=== PATIENT | female | born 1945 | race Caucasian/White ===

== ENCOUNTER 2017-10-22 18:24 | Inpatient (IN) | payer MEDICARE, OTHER ==
[~2017-10-22 18:24] MED LIST: ISOVUE-370 76%-LOCM 1 ML ONE
[2017-10-22 19:07] VITALS: BMI 29.7
[2017-10-22 19:10] LABS: #Basophils 0.1 thou/uL (0.0-0.2); #Eosinphils 0.1 thou/uL (0.0-0.7); #Lymphocytes 2.3 thou/uL (1.20-3.40); #Monocytes 0.5 thou/uL (0.11-0.59); #Neutrophils 7.1 thou/uL (1.40-6.50); %Basophils 0.7 % (0.0-1.0); %Lymphocytes 22.8 % (21.0-51.0); %Monocytes 5.1 % (0.0-10.0); Hematocrit 44.9 % (36.0-47.0); Mean Platelet Volume 7.4 fL (7.4-10.4); Red Blood Cell (RBC) Count 4.95 mill/uL (4.20-5.40); White Blood Cell (WBC) Count 10.1 thou/uL (4.8-10.8)
[2017-10-22 19:18] LABS: Modified Allen's Test POSITIVE; Sodium 140 mmol/L (135-148); Vent NO
[2017-10-22 19:19] LABS: Mode NC
[2017-10-22 19:29] LABS: ALT (SGPT) 25 U/L (8-55); AST (SGOT) 29 U/L (5-34); Alkaline Phosphatase 103 U/L (40-150); Anion Gap 14 mmol/L (10-20); BUN (Urea Nitrogen) 15 mg/dL (9.8-20.1); Bilirubin, Total 0.4 mg/dL (0.2-1.2); Calc. Creatinine Clearance 75 mL/min (70-130); Calcium 9.8 mg/dL (7.8-10.44); Carbon Dioxide 26 mmol/L (23-31); Chloride 104 mmol/L (98-107); Estimated GFR-MDRD 68; Globulin 3.1 g/dL (2.4-3.5); Magnesium 2.3 mg/dL (1.6-2.6); Protein, Total 7.5 g/dL (6.0-8.3)
[2017-10-22 19:39] LABS: Troponin I 0.012 ng/mL (< 0.028)
--- NOTE | 2017-10-22 20:35 | RAD ---
CHEST ONE VIEW: History: Chest pain. Comparison: 2016 FINDINGS: Lungs are without focal airspace consolidation, pneumothorax or effusion. Likely a large sliding hiat al hernia. No pneumothorax. Old right clavicular injury with plate and screw fixation of the right humerus. IMPRESSION: 1. No acute intrathoracic abnormality. 2. Likely large sliding hiatal hernia. POS: [facility]
--- NOTE | 2017-10-22 20:50 | PDOC.EVN ---
Event Note - Event Note Event Note: [id number] H&P dictated 1. Acute respiratory alkalosis 2. Anxiety 3. Dyspnea 4. Depression plan: see orders
--- NOTE | 2017-10-22 21:26 | CT ---
CTA CHEST WITH 3D VOLUME RENDERING: Clinical history: Chest pain. FINDINGS: No evidence of a significant filling defect of the contrast opacified pulmonary system. There is a la rge hiatal hernia. Mild volume loss is seen within the lungs. No effusion or pneumothorax. No lobar c onsolidation or pulmonary mass. Scattered hypoattenuation foci of the liver are present. Some of whic h demonstrate attenuation compatible with cysts and others are too small to definitely characterize. There is an adrenal mass centered at the body of the right adrenal gland which is indeterminate on th e basis of this exam. Vascular calcification is present. There are multilevel compression deformities of the thoracic spine, age indeterminate. IMPRESSION: 1. No large pulmonary embolus. 2. Multilevel age indeterminate compression deformities of the thoracic spine. Correlate clinically. 3. Large hiatal hernia. 4. Indeterminate right adrenal mass. Dedicated follow up adrenal mass protocol CT is warranted. POS: [facility]
[2017-10-22] MEDS ORDERED: Aspirin 325 MG TAB PO SCH (21:30)
[2017-10-22] MEDS ORDERED: AcetaZOLAMIDE 250 MG TAB PO SCH (21:30)
[2017-10-22 23:19] LABS: Troponin I Less than 0.010 ng/mL (< 0.028)
--- NOTE | 2017-10-23 01:40 | HP ---
DATE OF ADMISSION: 10/22/2017 CHIEF COMPLAINT: Dyspnea. HISTORY OF PRESENT ILLNESS: Patient is a 72-year-old male with past medical history of anxiety, restrictive lung disease, depression, osteopenia came to the ER because of dyspnea. The patient is having dyspnea for the past 2 months , dyspnea persisted. He complains of some dry cough for the past 2 weeks. Denies any fever, denies any chills, denies any sputum production, denies any chest condition. Dyspnea got worse last few weeks ago. Patient also complains of intermittent chest pain. Chest pain is substernal tightness kind, mild in intensity lasts few seconds, denies any fever, denies any chills, denies any diarrhea, denies any blood in the stool. Denies any palpitations, denies any dizziness. Patient went to PCP office and PCP directly admitted to the floor. PAST MEDICAL HISTORY: As per HPI. PAST SURGICAL HISTORY: Cholecystectomy. SOCIAL HISTORY: Denies smoking, denies alcohol use and drugs. FAMILY HISTORY: Positive for heart problems. REVIEW OF SYSTEMS: Constitutional: Denies any fever, denies any chills. Eyes : denies any vision problems. Ears: Denies any hearing loss. Neck: Denies any neck pain. Cardiovascular: Positive for chest tightness. Respiratory: Denies any cough, denies any sputum production. Gastrointestinal: Denies any nausea, vomiting. Integumentary: Denies any rash. Genitourinary: Denies any dysuria. Musculoskeletal: Denies any joint deformities. All other review of systems are reviewed and are negative. PHYSICAL EXAMINATION: CONSTITUTIONAL/VITAL SIGNS: At the time of H&P performed, blood pressure is 117 /100, heart rate 84, temperature 98.3, pulse ox 100%. GENERAL: This patient appears slightly anxious. Awake, alert, and oriented x3. HEENT: Head, anterior nares patent. Nose normal. Ears normal. NECK: Supple. No JVD. CARDIOVASCULAR: S1, S2 present. Regular rate and rhythm. No murmurs, no rubs , no gallops. RESPIRATORY: No wheezing, no rhonchi. Breath sounds bilaterally. GASTROINTESTINAL: Abdomen is soft, nontender, no guarding, no organomegaly, no masses felt. CRANIAL NERVE SYSTEM: Awake, follows commands. Strength intact, sensory intact. PSYCHIATRIC: Mood appropriate at this time. INTEGUMENT: No rashes seen. PSYCHIATRIC: Mood is slightly anxious. Denies any suicidal ideation. INTEGUMENTARY: No obvious rashes seen. LABORATORY DATA: At the time of H&P performed, white count 10.1, hemoglobin 15 , platelet count is 266, D-dimer 0.34. ABG showed pH 7.62, pCO2 of 18, bicarbonate is 18.5. BMP showed sodium 140, potassium 4.1, chloride 104, CO2 is 26, BUN of 15, creatinine 0.82, glucose is 112. Lactic acid 2.3, troponin 0.012. EKG: Positive for Q-waves in lead 3 and AVF. ASSESSMENT AND PLAN: Patient is a 72-year-old female: 1. Dyspnea plus acute respiratory alkalosis. We will monitor respiratory status closely. Bicarb in BMP was 26, potassium bicarbonate 1. Blood gases slightly low. We will monitor bicarbonate level closely. We will go ahead and get Pulmonary to evaluate the patient and also caser shoe parts. We will check 2D echo. We will go ahead and do CT chest to rule out any PE. We might give a dose of Diamox also at this time because of the severe respiratory alkalosis. We will follow the patient closely. 2. Anxiety. PRN anxiolytics. Monitor respiratory status closely. 3. History of Restrictive lung disease Continue breathing treatments. 4. History of depression and osteopenia. Continue home medications. Case was discussed in detail with the patient. Patient is FULL CODE. MTDD
[2017-10-23 02:16] LABS: Troponin I Less than 0.010 ng/mL (< 0.028)
[2017-10-23 04:10] LABS: #Eosinphils 0.1 thou/uL (0.0-0.7); #Lymphocytes 2.1 thou/uL (1.20-3.40); #Monocytes 0.6 thou/uL (0.11-0.59); #Neutrophils 4.3 thou/uL (1.40-6.50); %Basophils 0.7 % (0.0-1.0); %Eosinophils 1.6 % (0.0-10.0); %Lymphocytes 29.7 % (21.0-51.0); %Monocytes 8.2 % (0.0-10.0); Hematocrit 39.4 % (36.0-47.0); Mean Platelet Volume 7.4 fL (7.4-10.4); Red Blood Cell (RBC) Count 4.26 mill/uL (4.20-5.40); White Blood Cell (WBC) Count 7.2 thou/uL (4.8-10.8)
[2017-10-23 04:29] LABS: Anion Gap 11 mmol/L (10-20); BUN (Urea Nitrogen) 16 mg/dL (9.8-20.1); Calc. Creatinine Clearance 80 mL/min (70-130); Calcium 8.5 mg/dL (7.8-10.44); Carbon Dioxide 24 mmol/L (23-31); Chloride 108 mmol/L (98-107); Estimated GFR-MDRD 73
[2017-10-23] MEDS: Aspirin 325 MG TAB PO SCH (08:56)
[2017-10-23] MEDS: Oxybutynin 5 MG TAB PO SCH (08:56)
[2017-10-23] MEDS: Pantoprazole 40 MG GRANULES PACKET PO SCH ×2 (08:58→20:52)
--- NOTE | 2017-10-23 09:01 | PDOC.PN ---
- Subjective Encounter Start Date: 10/23/17 Encounter Start Time: 08:58 Subjective: sob, cough - Objective MAR Reviewed: Yes Vital Signs & Weight: Vital Signs (12 hours) Temp Pulse Resp BP BP Pulse Ox 10/23/17 07:28 97.6 F 75 20 124/70 99 10/22/17 22:18 84 24 H 150/87 H 95 Weight Weight 173 lb 4 oz Result Diagrams: 10/23/17 03:49 10/23/17 03:49 Additional Labs: Accuchecks 10/22/17 19:26 POC Glucose 120 H Phys Exam - Physical Examination Constitutional: NAD Neck: no JVD exp wheezes, rhonchi Cardiovascular: RRR, no significant murmur Gastrointestinal: soft, non-tender Musculoskeletal: no edema Dx/Plan (1) Chronic lung disease Code(s): J98.4 - OTHER DISORDERS OF LUNG Status: Chronic (2) Acute dyspnea Code(s): R06.00 - DYSPNEA, UNSPECIFIED Status: Acute (3) Respiratory alkalosis Code(s): E87.3 - ALKALOSIS Status: Acute (4) Anxiety Code(s): F41.9 - ANXIETY DISORDER, UNSPECIFIED Status: Chronic - Plan start neb, zithromax , steroids * .
[2017-10-23] MEDS: Venlafaxine HCl XR 150 MG CAP PO SCH (09:04)
--- NOTE | 2017-10-23 10:54 | CON ---
DATE OF CONSULTATION: 10/23/2017 INDICATION FOR CONSULTATION: A 72-year-old female with dyspnea on exertion, abnormal arterial blood gases and some complaints of chest discomfort, she was advised to be admitted to the hospital for fur ther evaluation and treatment. I saw this lady approximately 2 years ago with similar type complaint s with a history of shortness of breath, which have been getting worse when she tries to walk, she lai d stopped, and at that time was found also had a diagnosis of hiatal hernia. She also was found to h ave some small GI AVMs. She has some history of depression and anxiety. She did undergo stress test ing at that time and there was no indication that patient had any ischemia. She did have some pulmon naveen function studies in the past, which she says that showed evidence of restrictive lung disease. S he was seen in the hospital perhaps at that time by Dr. Torres and was prescribed albuterol inhalers an d she said her symptoms did improve while she was on inhaler, but when she run out the medicine, she stopped taking it and she has not had any further nebulizer treatments in over a year. She presented to the hospital at this time, cardiac enzymes are unremarkable, EKG is also unremarkable. Chest x-r ay shows a large hiatal hernia. Her laboratory data is essentially unremarkable except for the abnor mal ABGs. At this time, she is comfortable. She does have some epigastric discomfort, which she tosin cribes that as being her pain. She says she has had the pain for several years as well as shortness of breath and dyspnea on exertion, which she says neither the shortness of breath has not changed. S he says sometimes she has tingling and numbness in the left arm and tingling in both hands, which may be due to a noncardiac issue, these are not occurred at the time of the chest discomfort that she is having and the discomfort she describes is in the lower retrosternal area over the epigastric area, most likely with her hiatal hernia. She denies any other significant chest discomfort and she has lai d no complaints of palpitations or syncopal episodes or any other cardiac problems and denies any cla udication type symptoms. PAST MEDICAL HISTORY: Significant for hiatal hernia, depression, OCD, small GI AV malformations and restrictive lung disease. She has had an EGD in the past. She has had a cholecystectomy. She has h ad esophageal stricture, which she underwent balloon dilatation. ALLERGIES: None. MEDICATIONS: At home include Seroquel, Protonix, Ditropan, venlafaxine, hydrochlorothiazide extended release tablets. Since she has been placed in the hospital, she is on aspirin, Ditropan, Protonix. She has also been placed on prednisone 40 mg a day, Effexor XR. She also was given a dose of azithr omycin and she has been placed back on her DuoNeb. She is also on Seroquel. REVIEW OF SYSTEMS: HEENT: She had no new HEENT complaints such as visual changes, hearing loss or t innitus. Pulmonary: She has no changes in her shortness of breath or dyspnea on exertion. She says she has always been short of breath. She is unable to walk very far and the shortness of breath may become worse when she exerts herself, but otherwise she says she has no significant problems when sh e is lying down. She has more problems with breathing when she is sitting. She has had no hemoptysi s. Gastrointestinal: She did complain of some GI discomfort and she also had some hematemesis, but not severe. She has had no other significant diarrhea. She has had some occasional nausea, but none recently. Genitourinary: She denies any dysuria, polyuria, or hematuria. Musculoskeletal: No giulia nt swelling or restrictions. She does have some mild arthritic type change problems, but otherwise u nremarkable except for the numbness in the hands and the left arm which may be due to carpal tunnel s yndrome. Neurological: No history of seizures or syncope. PHYSICAL EXAMINATION: GENERAL: Reveals a well-developed, well-nourished female who is in no acute distress. She is alert and oriented. VITAL SIGNS: Blood pressure is 124/70, heart rate is 75 and regular. She is afebrile, respiratory r ate is 20. HEENT: Reveals the head to be normocephalic and atraumatic. Carotid pulses are present. There were no bruits. There is no JVD. The thyroid is not enlarged. Oral mucosa was pink and moist. CHEST: Clear to auscultation. There were no rales, rhonchi or wheezing noted. CARDIOVASCULAR: Exam reveals a regular rate and rhythm with a normal S1, S2. There is no S3, S4. T here were no significant murmurs, heaves, thrills, bruits or rubs noted. ABDOMEN: Shows obesity. Positive bowel sounds are present. She does have some tenderness in the ep igastric area. I cannot palpate any masses. EXTREMITIES: Showed no clubbing, cyanosis or edema. Pedal pulses are present. NEUROLOGIC: The patient appears to be fully intact with normal strength and normal tone. SKIN: Warm and dry. IMPRESSION: 1. Shortness of breath and dyspnea on exertion, which may be due to restrictive lung disease. She h as been placed back on nebulizer treatment. She may need to follow up with Dr. Torres for pulmonary ev aluation. She has had pulmonary function studies in the past. 2. History of chest pain, which is somewhat atypical and appears to be more of gastrointestinal prob sandi than actually cardiac, but we will schedule her for stress testing to ensure she has no evidence of coronary artery disease or ischemia given she is 72 years old. She has negative enzymes and a nor mal EKG. 3. Hiatal hernia. She may need to be seen again by GI and for consultation to see whether or not th is has worsened. She also may need to be seen by the General Surgery for possible repair of the hiat al hernia if this continues to worsen as this may be some of the etiology of her shortness of breath and discomfort. 4. Tingling in her hands and arms, which may be due to carpal tunnel syndrome, this is also be evalu ated by Orthopedics. 5. Some history in the past of anxiety. The patient denies history of anxiety. This will be dealt with by the primary care service. She has been placed on medications for this. 6. Some history of diastolic dysfunction by echocardiogram in the past. She has been having a repea t echocardiogram performed today. We will reevaluate this issue. Otherwise, she remains relatively stable. Overall, the patient says she has had no significant change in her symptoms over the last ye ar, she was visiting her family members and her son noticed that she was short of breath and he insis brice that she follow up with her primary care physician. We will continue to follow the patient with you, but will await further recommendations based on the echocardiogram and stress testing.
[2017-10-23] MEDS: predniSONE 20 MG TAB PO SCH (10:58)
[2017-10-23] MEDS: Azithromycin 500 MG in Sodium Chloride 0.9% 250 ML 250 ML IVPB SCH (14:45)
[2017-10-23] MEDS ORDERED: Regadenoson 0.4 MG/5 ML SYRINGE ONE (15:52)
--- NOTE | 2017-10-23 18:03 | NM ---
MYOCARDIAL PERFUSION STUDY 10/23/17 HISTORY: Dyspnea. Family history of coronary artery disease. RADIOPHARMACEUTICAL: 33 millicuries technetium 99m Sestamibi, IV at stress and 9 millicuries technetium 99m Sestamibi, IV at rest. MEDICATION: 0.4 mg of Lexiscan, IV. COMPARISON: 08/19/15. FINDINGS: There is no reversible defect seen between the stress and resting acquisitions. The gated images show normal ventricular wall motion and wall thickening. Calculated left ventricular ejection fraction is 81%. Calculated left ventricular ejection on the prior study in 2014 was 84%. IMPRESSION: 1. Normal myocardial perfusion study without evidence of a reversible defect seen to suggest isc hemia. 2. Normal LVEF of 81%. POS: [facility]
[2017-10-23] MEDS: clonazePAM 0.5 MG TAB PO SCH (20:52)
[2017-10-23 22:28] LABS: Bilirubin Negative (Negative); Blood, Urine Negative (Negative); Glucose, Urine (Dipstick) 500 mg/dL (Negative); Ketone, Urine Negative (Negative); Nitrite Negative (Negative); Protein, Urine (Dipstick) Negative (Neg-Trace)
--- NOTE | 2017-10-24 01:30 | CON ---
DATE OF CONSULTATION: 10/23/2017 SERVICE: Pulmonary Medicine. REASON FOR CONSULTATION: Metabolic alkalosis. HISTORY OF PRESENT ILLNESS: The patient is a 72-year-old white female. She was in her usual state o f health until 4 or 5 years ago, at which point, she visited [place]. From that point on, she felt stepan t she had increasing respiratory difficulties. This slowly abated for a period of time, but when she went back to [place] second time, she felt that she had onset of symptoms once again. These have been plugging her basically on and off for the past several years. She had a thorough investigation abou t 3 years ago. At that time, she had an ABG that was done demonstrated a respiratory alkalosis. The re was also pulmonary function studies dated from the same time. This demonstrated mild restrictive lung disease. That being said, her expiratory time was inadequate to determine whether or not she lai d any really true obstructive morphology, but realistically, there is no scooping of the expiratory l imb of the flow volume loop that would be suggestive of an obstructive morphology. At that time, the diffusion capacity was perfectly normal. She returns to the hospital because of increasing respirat ory discomfort, and some chest discomfort. Initially, she was placed in the hospital under observati on, but she was escalated to the inpatient side because of 4 different issues. Either way, she curre ntly denies any productive cough, changes to her weight, nausea, vomiting, diarrhea, or abdominal dis comfort. While back, when she would use albuterol or other types of breathing treatments, seemed to improve her respiratory discomfort slightly. PAST MEDICAL HISTORY: 1. Major depressive disorder. 2. Anxiety disorder. 3. Mild restrictive lung disease. 4. Osteopenia. PAST SURGICAL HISTORY: Cholecystectomy. SOCIAL HISTORY: Negative for alcohol, tobacco or illicit drug use. She denies any exposure to chemi cals, dust, asbestos or tuberculosis. FAMILY HISTORY: Noncontributory. ALLERGIES: No known drug allergies. MEDICATIONS: List of her outpatient and inpatient medications were reviewed. A couple of small upda josse were made. REVIEW OF SYSTEMS: General, head, ears, eyes, nose, throat, cardiovascular, respiratory, GI, , mus culoskeletal, neurologic and skin is negative except as mentioned in the HPI. PHYSICAL EXAMINATION: VITAL SIGNS: Afebrile, pulse 99, blood pressure 149/85, respirations 20, saturations 96% on 2 liters nasal cannula. GENERAL: The patient is awake and alert, in no apparent distress. LUNGS: Excellent air entry. There is no prolonged expiratory phase. I do hear some wheezing. Alth ough wheezing is transmitted from the posterior oropharynx and/or nose. She does not have any crackl es or rhonchi present. HEART: Normal rate, regular. ABDOMEN: Soft, nontender, nondistended. Bowel sounds are positive. MUSCULOSKELETAL: No cyanosis or clubbing. There is trace pitting in the bilateral lower extremities . NEUROLOGIC: Grossly nonfocal. She does not demonstrate any asterixis. She does have some numbness and tingling in bilateral hands, and nose and lips. LABORATORY DATA: Basic metabolic profile is completely unremarkable. Troponin is negative x3. Lact ate was 2.3, but truthfully she has no acidosis. Glucose was 120. Liver function studies were lucien l. The calcium is specifically 9.8 with albumin of 4.4. PH of 7.62, pCO2 of 18, PO2 of 107. The bi carbonate on the peripheral blood is between 24 and 26. D-dimer 0.34. Her CBC is completely unremar kable with a normal differential. Ionized calcium is 1.1. IMAGIN. Nuclear stress test demonstrates normal myocardial perfusion study without evidence of reversible deficit to suggest ischemia. Ejection fraction is elevated at 81%. 2. Echocardiogram demonstrates normal ejection fraction, right atrium and left atrium. There are so me mild valvular abnormalities. 3. CTA of the chest demonstrates no evidence of a pulmonary embolism. There is a large hiatal herni a. Multilevel indeterminate compression deformities of the thoracic spine are present. Large indete rminate right adrenal mass is identified. ASSESSMENT: 1. Combined respiratory alkalosis with metabolic alkalosis. These are apparently chronic. 2. Minimal restrictive lung disease with normal diffusion capacity. 3. Dyspnea. DISCUSSION AND PLAN: I certainly have no idea why the patient has dyspnea or why she is hyperventila ting. I have looked at all of her home medications and none of them should be causing these things t o occur. She does have a history of anxiety disorder and seems a little bit wound type. I am going to check a TSH and urinalysis to see whether or not her urine is acidotic or alkalotic. Initiate a s mall dose of Klonopin to see whether or not this helps with her dyspnea. I think the adrenal gland n eeds to be worked up separately, but at this point, I am not inclined to check the renin or angiotens in levels because her electrolytes were perfectly normal. I will continue to follow along for the ti me being, but truthfully, I am not quite aware of where to go from here. Whatever has been going on and has been fairly longstanding for greater than 4 years and she has demonstrated significant stabil ity during this period of time. We do have time to continue working this up in the outpatient [facility] g, but for the time being, we will see if any of these labs are revealing.
--- NOTE | 2017-10-24 09:34 | PDOC.PN ---
- Subjective Encounter Start Date: 10/24/17 Encounter Start Time: 09:28 Subjective: sob improved, just feels bad all over. insists anxiety not an issue - Objective MAR Reviewed: Yes Vital Signs & Weight: Vital Signs (12 hours) Temp Pulse Resp BP Pulse Ox 10/24/17 06:57 75 16 100 10/24/17 04:00 98 F 81 20 121/77 98 10/24/17 01:39 97 10/24/17 00:08 89 18 97 Weight Weight 172 lb 4.8 oz I&O: 10/23/17 10/24/17 10/25/17 06:59 06:59 06:59 Intake Total 1190 Output Total 1150 Balance 40 Result Diagrams: 10/23/17 03:49 10/23/17 03:49 Phys Exam - Physical Examination Constitutional: NAD Neck: no JVD Respiratory: clear to auscultation bilateral Cardiovascular: RRR, no significant murmur Gastrointestinal: soft, non-tender, positive bowel sounds Musculoskeletal: no edema Dx/Plan (1) Chronic lung disease Code(s): J98.4 - OTHER DISORDERS OF LUNG Status: Chronic (2) Acute dyspnea Code(s): R06.00 - DYSPNEA, UNSPECIFIED Status: Acute (3) Respiratory alkalosis Code(s): E87.3 - ALKALOSIS Status: Acute (4) Anxiety Code(s): F41.9 - ANXIETY DISORDER, UNSPECIFIED Status: Chronic - Plan cont nebs . sterroids antibx. -: 24 hr urine in progress * .
[2017-10-24] MEDS: Oxybutynin 5 MG TAB PO SCH (09:51)
[2017-10-24] MEDS: predniSONE 20 MG TAB PO SCH (09:51)
[2017-10-24] MEDS: Venlafaxine HCl XR 150 MG CAP PO SCH (09:51)
[2017-10-24] MEDS: Pantoprazole 40 MG GRANULES PACKET PO SCH ×2 (09:51→20:37)
[2017-10-24] MEDS: Aspirin 325 MG TAB PO SCH ×2 (09:52→09:54)
[2017-10-24] MEDS: clonazePAM 0.5 MG TAB PO SCH ×2 (09:52→20:37)
[2017-10-24] MEDS: Azithromycin 500 MG in Sodium Chloride 0.9% 250 ML 250 ML IVPB SCH (09:53)
--- NOTE | 2017-10-24 12:07 | PDOC.CTH ---
Cardiology Progress Note - Subjective Pt. seen and evaluated. No overnight events or problems. No complaints this AM. - Objective Vital Signs Temp Pulse Resp BP Pulse Ox 10/24/17 06:57 75 16 100 10/24/17 04:00 98 F 81 20 121/77 98 10/24/17 01:39 97 10/24/17 00:08 89 18 97 Weight 172 lb 4.8 oz 10/23/17 10/24/17 10/25/17 06:59 06:59 06:59 Intake Total 1190 Output Total 1150 Balance 40 - Physical Examination General/Neuro: alert & oriented x3 Neck: carotid US brisk Lungs: CTA Heart: PMI normal Abdomen: no HSM - Labs Result Diagrams: 10/23/17 03:49 10/23/17 03:49 Troponin/CKMB Troponin I Less than 0.010 ng/mL (< 0.028) 10/23/17 01:47 - Assessment/Plan 1. Dyspnea. Chronic SOB. No indication that this is cardiac. Normal stress test. Normal EF. No significant valvular disease. 2. Anxiety history. Pt. denies there is any problem. At this time the cardiac status is stable. I will sign off. If any cardiac problems then please let me know Review of Systems - Review of Systems EENTM: reports: no symptoms reported Respiratory: reports: no symptoms reported Cardiac (ROS): reports: no symptoms reported ABD/GI: reports: no symptoms reported : reports: no symptoms reported Musculoskeletal: reports: no symptoms reported Neurological: reports: no symptoms reported
[2017-10-24] MEDS: Acetaminophen 325 MG TAB PO PRN (13:09)
--- NOTE | 2017-10-24 17:37 | PRG ---
DATE OF SERVICE: 10/24/2017 SERVICE: Pulmonary Medicine. INTERVAL HISTORY: The patient continues to have episodes of breathing quickly. She denies any curre nt fevers, chills, nausea, vomiting or chest discomfort. She remains in her usual state of health. The anxiolytic medication did seem to improve some of her dyspnea. PHYSICAL EXAMINATION: VITAL SIGNS: Afebrile, pulse 87, blood pressure 136/76, respirations 18, saturation 97% on room air. GENERAL: The patient is awake and alert, in no apparent distress. LUNGS: Decent air entry. She has got no prolonged expiratory phase or wheezing. I do not appreciat e rhonchi or crackles. HEART: Normal rate, regular. ABDOMEN: Soft, nontender, nondistended. Bowel sounds positive. MUSCULOSKELETAL: No cyanosis or clubbing. No pitting in the bilateral lower extremities. NEUROLOGIC: Grossly nonfocal. LABORATORY DATA: Cortisol 1.4, TSH 0.7. Otherwise, multiple studies are currently pending. The pH in her urine is only 7.0. ASSESSMENT: 1. Combined respiratory alkalosis and metabolic alkalosis. 2. Minimal restrictive lung disease with normal diffusion capacity. 3. Dyspnea. 4. Adrenal nodule. PLAN: After reviewing some literature, I realized that there have been reported cases in which an ad renal nodule could create some alkalotic processes in the absence of electrolyte derangements. As wen ch, this adrenal nodule will be investigated in the inpatient setting. Multiple studies are currentl y pending. The cortisol level is low, but she does not have any significant blood pressure issues. Dexamethasone suppression test is probably not indicated under these circumstances. We will know mor e after some results come back. I am doubtful that these two things are related to each other, but t hat does remain a remote possibility. I still suspect that most of the patient's issues were likely anxiety driven. I stated that because of the stability over such a long period of time.
--- NOTE | 2017-10-25 08:32 | PDOC.PN ---
- Subjective Encounter Start Date: 10/25/17 Encounter Start Time: 08:23 Subjective: no respiratory difficulty - Objective MAR Reviewed: Yes Vital Signs & Weight: Vital Signs (12 hours) Temp Pulse Resp BP Pulse Ox 10/25/17 07:33 97.4 F L 88 16 142/82 H 96 10/25/17 06:20 91 16 95 10/25/17 04:00 98.0 F 89 18 131/86 96 10/25/17 00:34 83 16 94 L 10/25/17 00:00 98.5 F 110 H 20 116/74 95 Weight Weight 168 lb 14.4 oz I&O: 10/24/17 10/25/17 10/26/17 06:59 06:59 06:59 Intake Total 1190 1820 Output Total 1150 600 Balance 40 1220 Result Diagrams: 10/23/17 03:49 10/23/17 03:49 Phys Exam - Physical Examination Neck: no JVD Respiratory: clear to auscultation bilateral Cardiovascular: RRR, no significant murmur Gastrointestinal: soft, non-tender, positive bowel sounds Musculoskeletal: no edema Dx/Plan (1) Chronic lung disease Code(s): J98.4 - OTHER DISORDERS OF LUNG Status: Chronic (2) Acute dyspnea Code(s): R06.00 - DYSPNEA, UNSPECIFIED Status: Acute (3) Respiratory alkalosis Code(s): E87.3 - ALKALOSIS Status: Acute (4) Anxiety Code(s): F41.9 - ANXIETY DISORDER, UNSPECIFIED Status: Chronic - Plan cont nebs, reduce prednisone to 20 daily -: metabolic ELMORE in progress, discuss with Dr Keller * .
[2017-10-25] MEDS: predniSONE 20 MG TAB PO SCH (08:37)
[2017-10-25] MEDS: Acetaminophen 325 MG TAB PO PRN (08:37)
[2017-10-25] MEDS: Venlafaxine HCl XR 150 MG CAP PO SCH (08:37)
[2017-10-25] MEDS: clonazePAM 0.5 MG TAB PO SCH ×2 (08:37→20:41)
[2017-10-25] MEDS: Oxybutynin 5 MG TAB PO SCH (08:37)
[2017-10-25] MEDS: Azithromycin 500 MG in Sodium Chloride 0.9% 250 ML 250 ML IVPB SCH (09:47)
--- NOTE | 2017-10-25 21:47 | PRG ---
DATE OF SERVICE: 10/25/2017 SERVICE: Pulmonary Medicine. INTERVAL HISTORY: The patient is doing fine from a respiratory standpoint. She denies any nausea, v omiting or diarrhea. She continues to have tachypnea. That being said, she indicates that this is a ctually slow improved a little bit. PHYSICAL EXAMINATION: VITAL SIGNS: Afebrile, pulse 88, blood pressure 142/82, respirations all recorded 16-18, but truth mike olmos told, she is breathing close to 28 right now. Her saturations are 96% on room air. GENERAL: The patient is awake and alert. She is in no apparent distress. She is tachypneic, but sh nickolas wears a smile and talks in full sentences. HEENT: Normocephalic, atraumatic. Sclerae are white, conjunctivae pink. Oral mucosa is moist witho ut lesions. LUNGS: Excellent air entry with no prolonged expiratory phase, wheezing, rhonchi or crackles. HEART: Normal rate, regular. ABDOMEN: Soft, nontender, nondistended. Bowel sounds positive. MUSCULOSKELETAL: No cyanosis or clubbing. No pitting in the bilateral lower extremities. NEUROLOGIC: Grossly nonfocal. LABORATORY DATA: ACTH and cortisol are both low. This is likely the effect of him being on predniso ne. Cardiac enzymes are unremarkable x3. TSH is normal. Other laboratories are currently pending. There is certainly no need to keep her in house. ASSESSMENT: 1. Combined respiratory alkalosis and metabolic alkalosis. 2. Minimal restrictive lung disease with normal diffusion capacity. 3. Dyspnea. 4. Adrenal nodule. PLAN: The low ACTH and cortisol level are likely reflective of the fact the patient was started on p rednisone. That being said, they are certainly not elevated, which would give us Tyler's disease i s highly unlikely. Multiple laboratories are currently pending. The patient can follow up with me i n the outpatient setting, but truth be told, I do not think we are going to solve as something has be en chronic and stable for over 40 years. I will continue to follow while she remains in house.
[2017-10-26] MEDS: Acetaminophen 325 MG TAB PO PRN (07:52)
[2017-10-26] MEDS: predniSONE 20 MG TAB PO SCH (07:53)
[2017-10-26] MEDS: clonazePAM 0.5 MG TAB PO SCH (07:53)
[2017-10-26] MEDS: Venlafaxine HCl XR 150 MG CAP PO SCH (07:53)
[2017-10-26] MEDS: Oxybutynin 5 MG TAB PO SCH (07:53)
[2017-10-26] MEDS: Azithromycin 500 MG in Sodium Chloride 0.9% 250 ML 250 ML IVPB SCH (09:29)
[2017-10-26 13:35] VITALS: BP 149/90; TEMP 98.4
--- NOTE | 2017-10-26 15:20 | PDOC.PN ---
- Subjective Encounter Start Date: 10/26/17 Encounter Start Time: 08:00 Subjective: feels better, no new complaints - Objective MAR Reviewed: Yes Vital Signs & Weight: Vital Signs (12 hours) Temp Pulse Resp BP Pulse Ox 10/26/17 13:34 98.4 F 105 H 16 149/90 H 96 10/26/17 08:27 98.1 F 100 24 H 150/90 H 95 10/26/17 08:00 98.1 F 100 24 H 95 10/26/17 06:44 81 18 96 10/26/17 04:19 97 Weight Weight 168 lb 14.4 oz I&O: 10/25/17 10/26/17 10/27/17 06:59 06:59 06:59 Intake Total 1820 1000 Output Total 600 400 Balance 1220 600 Result Diagrams: 10/23/17 03:49 10/23/17 03:49 Phys Exam - Physical Examination HEENT: PERRLA, moist MMs Neck: no JVD, supple Respiratory: no wheezing, no rales Cardiovascular: RRR, no significant murmur Gastrointestinal: soft, non-tender, positive bowel sounds Musculoskeletal: no edema, pulses present Neurological: non-focal, moves all 4 limbs Psychiatric: A&O x 3 Dx/Plan (1) Respiratory alkalosis Code(s): E87.3 - ALKALOSIS Status: Chronic (2) SOB (shortness of breath) Code(s): R06.02 - SHORTNESS OF BREATH Status: Resolved (3) Anxiety Code(s): F41.9 - ANXIETY DISORDER, UNSPECIFIED Status: Chronic (4) Thoracic compression fracture Code(s): S22.000A - WEDGE COMPRESSION FRACTURE OF UNSP THORACIC VERTEBRA, INIT Status: Chronic Qualifiers: Fracture type: closed (5) Hiatal hernia Code(s): K44.9 - DIAPHRAGMATIC HERNIA WITHOUT OBSTRUCTION OR GANGRENE Status: Chronic - Plan d/w , dc pt home -: to continue klonopin, no further steroids needed -: to f/u with in 2-4 weeks -: rc prn * .
--- NOTE | 2017-10-26 18:29 | PRG ---
DATE OF SERVICE: 10/26/2017 SERVICE: Pulmonary Medicine. INTERVAL HISTORY: The patient is breathing comfortably this morning. As soon as I walking into the room, however, she started becoming a little more tachypneic. That being said, she feels much improv ed today. She denies any current fevers, chills, nausea, vomiting or chest discomfort. I would like to stay on the dose of Klonopin in the outpatient setting. It will take over 2 weeks for these medi cations to reach steady state if she continues taking them twice daily. Adjustments to this medicati on can be made very slowly in the outpatient setting. PHYSICAL EXAMINATION: VITAL SIGNS: Afebrile, pulse 105, blood pressure 149/90, respirations 16, saturation 96% on room air . GENERAL: The patient is awake and alert, in no apparent distress. LUNGS: Excellent air entry. I do not appreciate prolonged expiratory phase, wheezing or crackles. HEART: Normal rate, regular. ABDOMEN: Soft, nontender, nondistended. Bowel sounds positive. MUSCULOSKELETAL: No cyanosis or clubbing. No pitting in the bilateral lower extremities. NEUROLOGIC: Grossly nonfocal. LABORATORY DATA: Pending studies include urine studies for metanephrine and other metabolites, renni n, and aldosterone. ASSESSMENT: 1. Combined respiratory alkalosis and metabolic alkalosis. 2. Minimal restrictive lung disease with normal diffusion capacity. 3. Adrenal nodule. 4. Dyspnea, which improves with distraction and movement. PLAN: The low ACTH and cortisol level likely reflected the fact the patient was started on prednison e. Other multiple laboratories pending as detailed above. She can follow up with myself or Dr. Mona arriola in the outpatient setting to consider evaluation for obstructive sleep apnea, which she is mark anthony salmeron in. I do not believe she has any true intrinsic lung disease creating these issues. Anxiety is the most likely culprit here, though I do believe this is a diagnosis of exclusion. At this point, I will continue to follow if the patient remains in house, but from my perspective, this is something that can be followed up on the outpatient setting.
--- NOTE | 2017-10-26 22:26 | DIS ---
DATE OF ADMISSION: 10/22/2017 DATE OF DISCHARGE: 10/26/2017 DISCHARGE DISPOSITION: To home. PRIMARY DISCHARGE DIAGNOSES: 1. Dyspnea. 2. Respiratory alkalosis. 3. Anxiety 4. Thoracic compression fractures which are old hiatal hernia. PROCEDURES DONE DURING HOSPITALIZATION: The patient has had a nuclear stress test done which showed no reversible ischemia and a normal EF on the echo. CT angio chest done showed no PE, but incidental ly showed old compression fractures in thoracic spine. She also has large hiatal hernia. H and H 13 and 39, platelet count 225 with a white count of 7. D-dimer was 0.34. Blood gas done on the howed a pH of 7.62, pCO2 of 18, pO2 of 107 with blood gas, bicarbonate of 18. ACTH level was 1.9. C ortisol was 1.40. TSH 0.78. Troponin x3 was negative. Lactic acid 2.3. DISCHARGE MEDICATIONS: Vitamin D3 of 1000 units p.o. daily, Klonopin 0.5 mg p.o. twice daily, DuoNeb q.6 hourly p.r.n., Ditropan 5 mg p.o. daily, Protonix 40 mg p.o. twice daily, Seroquel 75 mg p.o. at bedtime, venlafaxine extended release 150 mg p.o. daily. ALLERGIES: No known drug allergies. INPATIENT CONSULTS: Dr. Keller for Pulmonology, Dr. Palacios for Cardiology. BRIEF COURSE DURING HOSPITALIZATION: The patient initially came to ER with complaints of ongoing lucy rtness of breath from last 2 months with dry cough from the last 2 weeks. She also complained of int ermittent chest pain. The patient was admitted to telemetry and has had a complete cardiac workup do ne. Her echo has not revealed any acute abnormalities. She also had a nuclear stress test done, whi ch showed no reversible ischemia. Three sets of troponins were negative. She has had consultation w rafael Keller. She has had CT angio chest done, which showed no evidence of PE. All workup so far were negative here. Patient's 24-hour urine catecholamines and metanephrines are pending at present . Also, aldosterone and renin levels are pending at the time of discharge. These need to be followe d up by primary care physician and Dr. Keller in the followup visits. She is ambulating and eating well prior to discharge. The patient was placed on Klonopin small dose to help with her anxiety/hypo ventilation. She is also on Seroquel and Effexor and would not want to increase the dose of Klonopin from the current small dose that she is on. She needs to follow up with Dr. Keller in 2-4 weeks. She also needs followup with primary care physician in 1 week. Please see a [id number] documentati on on [facility] for the day of discharge.
== END 2017-10-26 13:33 | disposition home or self-care (01) | DRG 204 ==
LOC: 2SW 18:24 → OBSVTOIN 10-23 09:03 → 2NO 10-23 16:03 → T4-B 10-24 17:25
PROVIDERS: ADMIT Internal Medicine; ATTEND Internal Medicine
DX: R06.00 Dyspnea, unspecified (principal); E87.4 Mixed disorder of acid-base balance; F41.9 Anxiety disorder, unspecified; F32.9 Major depressive disorder, single episode, unspecified; M85.80 Other specified disorders of bone density and structure, unspecified site; K44.9 Diaphragmatic hernia without obstruction or gangrene; M48.54XG Collapsed vertebra, not elsewhere classified, thoracic region, subsequent encounter for fracture with delayed healing; J98.4 Other disorders of lung; E27.9 Disorder of adrenal gland, unspecified
CPT/HCPCS: 36415; 36416; 71010; 71275; 78452; 80048; 80053; 81003; 82024; 82088; 82384; 82533; 82805; 83605; 83735; 83835; 84244; 84443; 84484; 85025; 85379; 93005; 93010; 93017; 93306; 94640; 94760; A9500; J0456; J2785; J7050; J7506; J7620

== ENCOUNTER → 2017-11-06 | Day surgery (SDC) | payer MEDICARE, OTHER ==
[2017-11-05 15:59] VITALS: BMI 28.6
[~2017-11-06] MED LIST changes: +Albuterol Sulfate 1.25 MG/3 ML NEB ONE; +Albuterol Sulfate 2.5 mg/3 ml Neb NEB SCH; -ISOVUE-370 76%-LOCM 1 ML ONE; +Lidocaine 1% PF 5 ML VIAL ONE; +Propofol 200 MG/20 ML VIAL ONE
--- NOTE | 2017-11-06 13:57 | OP ---
PREOPERATIVE DIAGNOSES: 1. Abnormal CT of the stomach. 2. Chest pain. PROCEDURE IN DETAIL: After informed consent was obtained, the patient was placed in the left lateral decubitus position. Anesthesia was administered per the Anesthesia Department. Forward-viewing end oscope was inserted into the esophagus under direct visualization with ease and passed to the second portion of the duodenum with ease. Second portion of the duodenum and duodenal bulb were normal. Py lorus, antrum, body, fundus, and cardia were normal. Retroflexion in the stomach showed a hiatal her param with abnormalities. This hernia was 6 cm in size. The esophagus was normal throughout. ASSESSMENT: 1. A 6 cm hiatal hernia - this is not causing patient's shortness of breath nor is likely causing th e patient's chest pain. 2. Otherwise normal esophagogastroduodenoscopy. RECOMMENDATIONS: Follow up with Dr. Keller for further evaluation of the patient's shortness of shantanu ath.
== END ==
LOC: SDC 09:27
PROVIDERS: ATTEND Internal Medicine Gastroenterology
PROC: 0DJ08ZZ Inspection of Upper Intestinal Tract, Via Natural or Artificial Opening Endoscopic (ICD-10-PCS; principal; 2017-11-06)
DX: K44.9 Diaphragmatic hernia without obstruction or gangrene (principal); K21.9 Gastro-esophageal reflux disease without esophagitis; R07.89 Other chest pain; Z79.899 Other long term (current) drug therapy
CPT/HCPCS: J2001; J2704

== ENCOUNTER 2017-11-21 09:17 | Outpatient (CLI) | payer MEDICARE, OTHER | END 2017-11-21 09:18 | disposition home or self-care (01) | LOC: CP 09:17 | PROVIDERS: ATTEND Internal Medicine | DX: R06.09 Other forms of dyspnea (principal); G47.33 Obstructive sleep apnea (adult) (pediatric) ==

== ENCOUNTER 2018-01-31 19:30 | Outpatient (CLI) | payer MEDICARE, OTHER | END 2018-01-31 19:31 | disposition home or self-care (01) | LOC: SLEEPLAB 19:30 | PROVIDERS: ATTEND Internal Medicine | DX: G47.33 Obstructive sleep apnea (adult) (pediatric) (principal); G47.61 Periodic limb movement disorder; K21.9 Gastro-esophageal reflux disease without esophagitis; R35.1 Nocturia | CPT/HCPCS: 95811 ==

== ENCOUNTER 2018-02-04 19:46 | Emergency (ER) | payer MEDICARE, OTHER ==
--- NOTE | 2018-02-04 20:21 | RAD ---
RIGHT WRIST THREE VIEWS: History: Injury with pain. FINDINGS: There are degenerative changes at the wrist. There is narrowing of the radiocarpal joint. 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 No acute fracture identified. IMPRESSION: Degenerative changes at the wrist without evidence of acute fracture. POS: ARYA
== END 2018-02-04 20:37 | disposition home or self-care (01) ==
LOC: SCSER 19:46
DX: S63.501A Unspecified sprain of right wrist, initial encounter (principal); F41.9 Anxiety disorder, unspecified; W18.30XA Fall on same level, unspecified, initial encounter; Y93.02 Activity, running
CPT/HCPCS: 29125

== ENCOUNTER 2018-03-25 11:22 | Emergency (ER) | payer MEDICARE, OTHER ==
[2018-03-25 12:18] LABS: #Lymphocytes 1.3 thou/uL (1.20-3.40); #Monocytes 0.3 thou/uL (0.11-0.59); #Neutrophils 5.6 thou/uL (1.40-6.50); %Eosinophils 0.5 % (0.0-10.0); %Lymphocytes 18.7 % (21.0-51.0); %Monocytes 3.4 % (0.0-10.0); %Neutrophils 77.5 % (42.0-75.0); Hemoglobin 15.2 g/dL (12.0-16.0); Mean Corpuscular HGB CONC 33.8 g/dL (32.0-36.0); Mean Corpuscular Volume 88.9 fl (81.0-99.0); Platelet Count 253 thou/uL (130-400); RBC Distribution Width 12.5 % (11.5-14.5); Red Blood Cell (RBC) Count 5.06 mill/uL (4.20-5.40); White Blood Cell (WBC) Count 7.2 thou/uL (4.8-10.8)
--- NOTE | 2018-03-25 12:40 | RAD ---
PORTABLE CHEST: DATE: 03/25/18. TIME: 11:25 a.m. HISTORY: Shortness of breath, anxiety, vomiting. FINDINGS: Comparison is made with the exam of 10/22/17. The heart size is normal. No focal areas of consolidation, pneumothorax, tucker pulmonary edema, or p leural effusions are seen. There are postop changes of metallic hardware in the right humerus. IMPRESSION: No acute process. POS: ITZEL
[2018-03-25 12:46] LABS: CKMB 1.8 ng/mL (0-6.6); Troponin I Less than 0.010 ng/mL (< 0.028)
[2018-03-25 12:47] LABS: ALT (SGPT) 24 U/L (8-55); AST (SGOT) 28 U/L (5-34); Albumin 4.2 g/dL (3.4-4.8); Alkaline Phosphatase 132 U/L (40-150); Anion Gap 17 mmol/L (10-20); BUN (Urea Nitrogen) 13 mg/dL (9.8-20.1); CK (CPK) 65 U/L (29-168); Calc. Creatinine Clearance 0 mL/min (70-130); Calcium 9.8 mg/dL (7.8-10.44); Carbon Dioxide 20 mmol/L (23-31); Chloride 105 mmol/L (98-107); Estimated GFR-MDRD 75; Glucose 115 mg/dL (83-110); Potassium 3.9 mmol/L (3.5-5.1); Protein, Total 7.2 g/dL (6.0-8.3); Sodium 138 mmol/L (136-145)
[2018-03-25] MEDS ORDERED: Ondansetron ODT 8 MG TAB ONE (13:32)
--- NOTE | 2018-05-03 14:45 | EKG ---
Test Reason : Blood Pressure : / mmHG Vent. Rate : 060 BPM Atrial Rate : 060 BPM P-R Int : 192 ms QRS Dur : 072 ms QT Int : 458 ms P-R-T Axes : 046 001 016 degrees QTc Int : 458 ms Normal sinus rhythm Possible Left atrial enlargement Nonspecific T wave abnormality Abnormal ECG Confirmed by CECE WILKES, NUNO ([id number]), business editor MORIAH ART ([id number] on 05/03/2018 2:44:49 PM Referred By: Confirmed By:NUNO ZHAO MD
== END 2018-03-25 14:55 | disposition home or self-care (01) ==
LOC: ERS 11:22
DX: R20.2 Paresthesia of skin (principal); R11.2 Nausea with vomiting, unspecified; I11.0 Hypertensive heart disease with heart failure; I50.9 Heart failure, unspecified; F41.9 Anxiety disorder, unspecified; Z79.899 Other long term (current) drug therapy
CPT/HCPCS: 36415; 71045; 80053; 82550; 82553; 84484; 85025; 93005

== ENCOUNTER 2019-05-14 11:01 | Emergency (ER) | payer MEDICARE ==
[2019-05-14] MEDS ORDERED: Ondansetron PF 4 MG/2 ML Vial ONE (11:30)
[2019-05-14] MEDS ORDERED: Acetaminophen 500 MG TAB ONE (11:50)
[2019-05-14 11:54] LABS: #Basophils 0.1 thou/uL (0.0-0.2); #Lymphocytes 1.6 thou/uL (1.20-3.40); #Monocytes 0.3 thou/uL (0.11-0.59); #Neutrophils 5.6 thou/uL (1.40-6.50); %Basophils 0.8 % (0.0-1.0); %Eosinophils 0.2 % (0.0-10.0); %Lymphocytes 21.2 % (21.0-51.0); %Monocytes 4.2 % (0.0-10.0); %Neutrophils 73.5 % (42.0-75.0); Mean Corpuscular HGB CONC 33.6 g/dL (32.0-36.0); Mean Corpuscular Hemoglobin 30.3 pg (27.0-31.0); Mean Corpuscular Volume 90.1 fL (78.0-98.0); Mean Platelet Volume 7.9 fL (7.4-10.4); Platelet Count 208 thou/uL (130-400); RBC Distribution Width 11.7 % (11.5-14.5); Red Blood Cell (RBC) Count 5.27 mill/uL (4.20-5.40); White Blood Cell (WBC) Count 7.7 thou/uL (4.8-10.8)
[2019-05-14 12:07] LABS: ALT (SGPT) 47 U/L (8-55); AST (SGOT) 38 U/L (5-34); Albumin 4.1 g/dL (3.4-4.8); Alkaline Phosphatase 132 U/L (40-150); Anion Gap 20 mmol/L (10-20); BUN (Urea Nitrogen) 18 mg/dL (9.8-20.1); Bilirubin, Total 1.1 mg/dL (0.2-1.2); Calc. Creatinine Clearance 0 mL/min (70-130); Calcium 9.6 mg/dL (7.8-10.44); Carbon Dioxide 20 mmol/L (23-31); Chloride 106 mmol/L (98-107); Estimated GFR-MDRD 73; Globulin 3.2 g/dL (2.4-3.5); Glucose 133 mg/dL (83-110); Potassium 3.8 mmol/L (3.5-5.1); Protein, Total 7.3 g/dL (6.0-8.3); Sodium 142 mmol/L (136-145)
== END 2019-05-14 12:53 | disposition home or self-care (01) ==
LOC: SCSER 11:01
DX: R19.7 Diarrhea, unspecified (principal); R11.2 Nausea with vomiting, unspecified; I10 Essential (primary) hypertension; F41.9 Anxiety disorder, unspecified
CPT/HCPCS: 80053; 84484; 85025; 96361; 96374; J2405

== ENCOUNTER 2019-05-18 16:03 | Inpatient (IN) | payer MEDICARE ==
[~2019-05-18 16:03] MED LIST changes: -Albuterol Sulfate 1.25 MG/3 ML NEB ONE; -Albuterol Sulfate 2.5 mg/3 ml Neb NEB SCH; +ISOVUE-370 76%-LOCM 1 ML ONE; -Lidocaine 1% PF 5 ML VIAL ONE; -Propofol 200 MG/20 ML VIAL ONE
[2019-05-18 16:35] LABS: #Basophils 0.1 thou/uL (0.0-0.2); #Eosinphils 0.1 thou/uL (0.0-0.7); #Lymphocytes 2.2 thou/uL (1.20-3.40); #Monocytes 0.5 thou/uL (0.11-0.59); #Neutrophils 5.2 thou/uL (1.40-6.50); %Basophils 0.7 % (0.0-1.0); %Eosinophils 0.6 % (0.0-10.0); %Lymphocytes 27.2 % (21.0-51.0); %Monocytes 6.6 % (0.0-10.0); %Neutrophils 64.8 % (42.0-75.0); Hemoglobin 15.4 g/dL (12.0-16.0); Mean Corpuscular HGB CONC 33.9 g/dL (32.0-36.0); Mean Corpuscular Hemoglobin 31.3 pg (27.0-31.0); Mean Corpuscular Volume 92.3 fL (78.0-98.0); Mean Platelet Volume 7.5 fL (7.4-10.4); Platelet Count 259 thou/uL (130-400); RBC Distribution Width 11.7 % (11.5-14.5); Red Blood Cell (RBC) Count 4.93 mill/uL (4.20-5.40)
[2019-05-18 16:54] LABS: ALT (SGPT) 53 U/L (8-55); AST (SGOT) 37 U/L (5-34); Albumin 4.2 g/dL (3.4-4.8); Alkaline Phosphatase 121 U/L (40-150); Anion Gap 13 mmol/L (10-20); BUN (Urea Nitrogen) 10 mg/dL (9.8-20.1); Bilirubin, Total 0.6 mg/dL (0.2-1.2); Calc. Creatinine Clearance 0 mL/min (70-130); Calcium 9.6 mg/dL (7.8-10.44); Carbon Dioxide 24 mmol/L (23-31); Chloride 105 mmol/L (98-107); Estimated GFR-MDRD 72; Globulin 2.7 g/dL (2.4-3.5); Glucose 123 mg/dL (83-110); Potassium 3.2 mmol/L (3.5-5.1); Protein, Total 6.9 g/dL (6.0-8.3); Sodium 139 mmol/L (136-145)
[2019-05-18] MEDS ORDERED: Ondansetron PF 4 MG/2 ML Vial ONE (17:17)
[2019-05-18] MEDS ORDERED: Pantoprazole 40 MG VIAL ONE (17:17)
--- NOTE | 2019-05-18 17:28 | CT ---
CT Abdomen Pelvis W Con History: Abdominal pain. Nausea. Comparison: None. Findings: Lung bases are clear. No pericardial effusion. Numerous hypodensities are present throughout the liver, incompletely evaluated on this examination. Prior cholecystectomy. Diverticulum second portion of the duodenum. Small fat-containing periumbilical hernia. No dilated loops of large or small bowel. Moderate diverti cular disease of the sigmoid colon without active current inflammation. Mild hyperenhancement of the transverse colon. Kidneys unremarkable. Spleen is unremarkable. There is a mass of the right adrenal gland measuring 1.7 cm. Moderate hiatal hernia with abnormal edema. Possible prior [place] fundoplication. No hydronephrosis. Wedge compression fractures throughout the thoracolumbar spine, some with retropul eileen and neural foraminal narrowing as well as spinal canal narrowing. Overall these compression deformities are similar to 2017 exam. Impression: 1. Mild hyperenhancement of the mucosa the transverse colon can be seen with colitis. No evidence for perforation. 2. Numerous hepatic cysts. 3. Similar appearance of right adrenal adenoma. 4. Moderate sliding hiatal hernia. Recommend correlation with the history of prior [place] fundoplicat ion. 5. Small fat-containing umbilical hernia.
[2019-05-18 21:09] LABS: Lactic Acid 2.9 mmol/L (0.5-2.2)
[2019-05-18] MEDS ORDERED: Potassium Chloride 20 MEQ TAB PO SCH (21:15)
[2019-05-18] MEDS ORDERED: Gabapentin 300 MG CAP PO SCH (21:45)
[2019-05-18] MEDS ORDERED: metroNIDAZOLE 500 MG in Premix Bag 1 BAG IVPB SCH (22:00)
[2019-05-18] MEDS: Acetaminophen 325 MG TAB PO PRN (22:28)
[2019-05-18] MEDS: Ondansetron PF 4 MG/2 ML Vial IVP PRN (22:33)
[2019-05-18] MEDS: Sodium Chloride 0.9% 1,000 ML IV SCH (22:45)
--- NOTE | 2019-05-18 23:08 | HP ---
CHIEF COMPLAINT: Nausea, vomiting, diarrhea x1 week. HISTORY OF PRESENT ILLNESS: The patient is a 74-year-old female with past medical history significant for history of bleeding ulcers in the past, and anxiety, who presented to the hospital today with complaints of nausea, vomiting, and diarrhea that began about a week ago. Associated symptoms include headache. The patient has been seen once in our ER and once by her primary care physician. Her PCP did prescribe ciprofloxacin for her symptoms, however, she has not started taking this medication. Because her symptoms have not resolved or improved, she did present to the ER again for further workup and treatment. CT scan of the abdomen and pelvis with contrast revealed colitis of the transverse colon. Incidental finding of numerous hepatic cysts as well as identification of hiatal hernia, which has been a known finding for this patient was also identified. The patient was referred to the hospitalist service for admission and treatment. The patient reports that she has had no abdominal pain. She reports no fevers or chills. She does complain of associated headache. She has had no blood in her stool. Reports 4 to 5 watery BMs prior to her arrival. She has been taking p.r.n. Zofran, which has helped her symptoms some, but she has had poor oral intake over the last week. REVIEW OF SYSTEMS: 12-point review of systems performed and is negative except as stated above. ALLERGIES: NO KNOWN DRUG ALLERGIES. HOME MEDICATIONS: 1. Aspirin 81 mg daily. 2. Ferrous sulfate 325 mg one tablet daily. 3. Fish oil 1000 mg capsule one capsule daily. 4. Gabapentin 300 mg capsule one p.o. at bedtime. 5. Lactobacillus acidophilus one capsule one p.o. daily. 6. Reglan 5 mg p.o. q.8 hours p.r.n. 7. Zofran 8 mg p.o. q.6 p.r.n. 8. Seroquel 100 mg p.o. at bedtime. 9. Effexor 150 mg p.o. daily. 10. Tramadol 50 mg tablet 1 to 2 tabs p.o. q.6 hours p.r.n. PAST MEDICAL HISTORY: Significant for anxiety, mild restrictive lung disease, gastroesophageal reflux disease along with history of bleeding ulcer. PAST SURGICAL HISTORY: Cholecystectomy, tubal ligation, EGD in 2017, which revealed hiatal hernia with no recommendations at that time for invasive treatment. PSYCHIATRIC HISTORY: Anxiety. SOCIAL HISTORY: The patient denies any alcohol, drug use, or smoking history. She has a son who lives nearby. She lives alone and performs all of her ADLs independently. FAMILY HISTORY: Noncontributory. PHYSICAL EXAMINATION: VITAL SIGNS: Blood pressure 163/84, pulse is 69, respirations 26, temperature is 98.6, O2 saturation is 99% on room air. GENERAL: The patient is a mildly obese female, in no acute distress HEENT: Head is atraumatic and normocephalic. Mucous membranes are moist. NECK: Supple. No lymphadenopathy. Trachea is midline. No JVD. CV: S1 and S2. Regular rate and rhythm. No appreciable murmurs, rubs, or gallops. LUNGS: Regular respiratory rate and pattern. Clear to auscultation bilaterally. ABDOMEN: Positive bowel sounds in all 4 quadrants, her belly is soft. It is nontender. There is no rebound tenderness. EXTREMITIES: Warm and well perfused, trace edema bilaterally. +2 DP pulses bilaterally. SKIN: Warm and dry. NEUROLOGIC: Cranial nerves 2 through 12 are grossly intact. The patient is nonfocal. LABORATORY DATA: WBC 8.0, hemoglobin 15.4, hematocrit 45.5, platelet count is 259. Sodium 139, potassium 3.2, chloride 105, carbon dioxide 24, anion gap is 13, BUN is 10, creatinine 0.78. Lactic acid is 2.5. AST 37, ALT 53, alkaline phosphatase is 121. Troponin less than 0.010. ASSESSMENT: 1. Colitis, unknown etiology, likely infectious. 2. Mild lactic acidosis, and hypokalemia secondary to above. 3. History of mild restrictive lung disease, stable. 4. History of anxiety and hyperventilation, on Seroquel and Effexor. 5. History of gastroesophageal reflux disease and gastric ulcers. 6. Hiatal hernia per CT, per review of records, this is known finding. 7. Incidental finding of hepatic cyst. PLAN: At this time, we will treat the patient's colitis with IV Flagyl and Cipro. Continue IV fluid resuscitation. Continue antiemetics and supportive care. We will replete the patient's potassium and recheck potassium level in the morning. We will also obtain a C. diff assay. Further recommendations based on hospital course. Regarding the incidental finding of hepatic cyst, would recommend outpatient GI workup. She has seen GI in the past. Job ID: [id number]
[2019-05-18] MEDS: metroNIDAZOLE 500 MG in Premix Bag 1 BAG IVPB SCH (23:56)
[2019-05-19] MEDS: Acetaminophen 325 MG TAB PO PRN ×2 (05:16→10:46)
[2019-05-19] MEDS: Ondansetron PF 4 MG/2 ML Vial IVP PRN ×2 (05:17→16:12)
[2019-05-19 05:42] LABS: #Eosinphils 0.1 thou/uL (0.0-0.7); #Monocytes 0.4 thou/uL (0.11-0.59); %Basophils 0.7 % (0.0-1.0); %Eosinophils 2.6 % (0.0-10.0); %Lymphocytes 35.6 % (21.0-51.0); %Monocytes 7.6 % (0.0-10.0); %Neutrophils 53.5 % (42.0-75.0); Hemoglobin 12.9 g/dL (12.0-16.0); Mean Corpuscular HGB CONC 33.5 g/dL (32.0-36.0); Mean Corpuscular Hemoglobin 31.8 pg (27.0-31.0); Mean Platelet Volume 7.1 fL (7.4-10.4); Platelet Count 213 thou/uL (130-400); RBC Distribution Width 11.7 % (11.5-14.5); Red Blood Cell (RBC) Count 4.04 mill/uL (4.20-5.40); White Blood Cell (WBC) Count 5.7 thou/uL (4.8-10.8)
[2019-05-19 05:58] LABS: Anion Gap 12 mmol/L (10-20); BUN (Urea Nitrogen) 6 mg/dL (9.8-20.1); Calc. Creatinine Clearance 79 mL/min (70-130); Calcium 8.4 mg/dL (7.8-10.44); Carbon Dioxide 21 mmol/L (23-31); Chloride 114 mmol/L (98-107); Estimated GFR-MDRD 80; Glucose 91 mg/dL (83-110); Potassium 3.6 mmol/L (3.5-5.1); Sodium 143 mmol/L (136-145)
[2019-05-19] MEDS: metroNIDAZOLE 500 MG in Premix Bag 1 BAG IVPB SCH ×2 (08:26→16:12)
[2019-05-19] MEDS: Enoxaparin Sodium 40 MG/0.4 ML SYRINGE SC SCH (08:29)
[2019-05-19] MEDS: Fish Oil 1,000 MG CAP PO SCH (08:29)
[2019-05-19] MEDS: Ferrous Sulfate 325 MG TAB PO SCH (08:29)
[2019-05-19] MEDS: Aspirin 81 mg Enteric Coated Tablet PO SCH (08:29)
[2019-05-19] MEDS: Magnesium Oxide 400 MG TAB PO SCH (08:29)
[2019-05-19] MEDS: Venlafaxine HCl XR 150 MG CAP PO SCH (08:33)
[2019-05-19] MEDS: Loratadine/Pseudoephedrine 10/240 mg Tablet PO SCH (10:38)
[2019-05-19] MEDS ORDERED: Loperamide HCl 2 MG CAP PO SCH (13:00)
[2019-05-19] MEDS: Sodium Chloride 0.9% 1,000 ML IV SCH (13:29)
--- NOTE | 2019-05-19 16:18 | PDOC.PN ---
- Subjective Encounter Start Date: 05/19/19 Encounter Start Time: 16:17 Patient lying in bed, she reports continued nausea and abdominal pain today. She denies chest pain, shortness of breath. She reports improved diarrhea, but still reports 2-3 episodes in the last 24 hours. C diff negative. - Objective MAR Reviewed: Yes Vital Signs & Weight: Vital Signs (12 hours) Temp Pulse Resp BP Pulse Ox 05/19/19 15:20 98.0 F 70 20 132/74 97 05/19/19 12:24 98.3 F 80 20 158/82 H 95 05/19/19 07:30 97.3 F L 63 16 131/63 94 L 05/19/19 04:29 97.5 F L 68 16 118/62 94 L Weight Admit Weight 165 lb 9.6 oz Weight 163 lb 11.2 oz I&O: 05/18/19 05/19/19 05/20/19 06:59 06:59 06:59 Intake Total 1520 Output Total 700 Balance 820 Result Diagrams: 05/19/19 05:33 05/19/19 05:33 Radiology Reviewed by me: Yes Phys Exam - Physical Examination Constitutional: NAD HEENT: moist MMs, oral pharynx no lesions Neck: no nodes, supple Respiratory: no wheezing, clear to auscultation bilateral Cardiovascular: RRR, no significant murmur Gastrointestinal: soft, positive bowel sounds Hyperactive bowel sounds, diffuse abdominal tenderness to palpation over left side Musculoskeletal: no edema, pulses present Neurological: non-focal, moves all 4 limbs Lymphatic: no nodes Psychiatric: A&O x 3 Skin: normal turgor, cap refill <2 seconds Dx/Plan (1) Colitis Code(s): K52.9 - NONINFECTIVE GASTROENTERITIS AND COLITIS, UNSPECIFIED Status : Acute (2) Diarrhea Code(s): R19.7 - DIARRHEA, UNSPECIFIED Status: Acute (3) Anxiety Code(s): F41.9 - ANXIETY DISORDER, UNSPECIFIED Status: Chronic (4) Chronic lung disease Code(s): J98.4 - OTHER DISORDERS OF LUNG Status: Chronic (5) Hiatal hernia Code(s): K44.9 - DIAPHRAGMATIC HERNIA WITHOUT OBSTRUCTION OR GANGRENE Status: Chronic - Plan cont current plan of care, continue antibiotics, DVT proph w/lovenox * Continue IV abx * Stool cultures negative for cdiff * Continue symptomatic care * Add bentyl for GI spasms * Zofran for nausea and imodium as needed for loose stools * Continue IV fluids * Will discuss with case management on transition to inpatient due to patient not improving * Switch to liquid diet as tolerated
[2019-05-19] MEDS: Dicyclomine 10 MG/5 ML UDCUP PO SCH ×2 (17:42→21:48)
[2019-05-19] MEDS: Gabapentin 300 MG CAP PO SCH (21:39)
[2019-05-20] MEDS: metroNIDAZOLE 500 MG in Premix Bag 1 BAG IVPB SCH ×4 (00:58→23:23)
[2019-05-20] MEDS: Sodium Chloride 0.9% 1,000 ML IV SCH ×3 (03:04→23:23)
[2019-05-20] MEDS: Ondansetron PF 4 MG/2 ML Vial IVP PRN (06:42)
[2019-05-20 08:09] LABS: #Eosinphils 0.2 thou/uL (0.0-0.7); #Lymphocytes 2.3 thou/uL (1.20-3.40); #Monocytes 0.5 thou/uL (0.11-0.59); #Neutrophils 4.3 thou/uL (1.40-6.50); %Basophils 0.2 % (0.0-1.0); %Eosinophils 3.3 % (0.0-10.0); %Monocytes 7.3 % (0.0-10.0); %Neutrophils 58.2 % (42.0-75.0); Mean Corpuscular HGB CONC 33.4 g/dL (32.0-36.0); Mean Corpuscular Volume 92.7 fL (78.0-98.0); Mean Platelet Volume 7.4 fL (7.4-10.4); Platelet Count 207 thou/uL (130-400); RBC Distribution Width 11.5 % (11.5-14.5); Red Blood Cell (RBC) Count 4.19 mill/uL (4.20-5.40); White Blood Cell (WBC) Count 7.4 thou/uL (4.8-10.8)
[2019-05-20 08:26] LABS: Anion Gap 11 mmol/L (10-20); BUN (Urea Nitrogen) 7 mg/dL (9.8-20.1); Calc. Creatinine Clearance 84 mL/min (70-130); Calcium 8.7 mg/dL (7.8-10.44); Carbon Dioxide 22 mmol/L (23-31); Chloride 109 mmol/L (98-107); Estimated GFR-MDRD 86; Glucose 86 mg/dL (83-110); Potassium 3.5 mmol/L (3.5-5.1); Sodium 138 mmol/L (136-145)
[2019-05-20] MEDS: Dicyclomine 10 MG/5 ML UDCUP PO SCH ×4 (09:19→21:26)
[2019-05-20] MEDS: Aspirin 81 mg Enteric Coated Tablet PO SCH (09:19)
[2019-05-20] MEDS: Magnesium Oxide 400 MG TAB PO SCH (09:19)
[2019-05-20] MEDS: Fish Oil 1,000 MG CAP PO SCH (09:19)
[2019-05-20] MEDS: Ferrous Sulfate 325 MG TAB PO SCH (09:19)
[2019-05-20] MEDS: Loratadine/Pseudoephedrine 10/240 mg Tablet PO SCH (09:20)
[2019-05-20] MEDS: Enoxaparin Sodium 40 MG/0.4 ML SYRINGE SC SCH (09:20)
[2019-05-20] MEDS: Venlafaxine HCl XR 150 MG CAP PO SCH (09:24)
--- NOTE | 2019-05-20 11:05 | PDOC.PN ---
- Subjective Encounter Start Date: 05/20/19 Encounter Start Time: 11:04 Patient lying in bed, she reports persistent abdominal pain, nausea and diarrhea. She states she has had 5 bowel movements in the last 24 hours. She denies chest pain, palpitations, or shortness of breath. - Objective MAR Reviewed: Yes Vital Signs & Weight: Vital Signs (12 hours) Temp Pulse Resp BP Pulse Ox 05/20/19 08:55 95 05/20/19 07:50 98.2 F 73 20 157/90 H 95 05/20/19 03:06 98.1 F 68 18 156/74 H 96 05/19/19 23:53 98.4 F 81 20 173/94 H 95 Weight Admit Weight 165 lb 9.6 oz Weight 164 lb I&O: 05/19/19 05/20/19 05/21/19 06:59 06:59 06:59 Intake Total 1520 3551 Output Total 700 1200 Balance 820 2351 Result Diagrams: 05/20/19 08:01 05/20/19 08:01 Radiology Reviewed by me: Yes Phys Exam - Physical Examination Constitutional: NAD HEENT: moist MMs, oral pharynx no lesions Neck: no nodes, supple Respiratory: no wheezing, clear to auscultation bilateral Cardiovascular: RRR, no significant murmur Gastrointestinal: soft Hyperactive bowel sounds with tenderness to left side of abdomen epigastric Musculoskeletal: no edema, pulses present Neurological: non-focal, moves all 4 limbs Lymphatic: no nodes Psychiatric: A&O x 3 Skin: cap refill <2 seconds Dx/Plan (1) Colitis Code(s): K52.9 - NONINFECTIVE GASTROENTERITIS AND COLITIS, UNSPECIFIED Status : Acute (2) Diarrhea Code(s): R19.7 - DIARRHEA, UNSPECIFIED Status: Acute (3) Anxiety Code(s): F41.9 - ANXIETY DISORDER, UNSPECIFIED Status: Chronic (4) Chronic lung disease Code(s): J98.4 - OTHER DISORDERS OF LUNG Status: Chronic (5) Hiatal hernia Code(s): K44.9 - DIAPHRAGMATIC HERNIA WITHOUT OBSTRUCTION OR GANGRENE Status: Chronic - Plan cont current plan of care, plan discussed w/ family, continue antibiotics * Continue cipro and flagyl * Continue IV NS * Clear liquid diet for now * No WBC and afebrile * Continue other home medications * With patient continuing to require IV fluids, will transition to inpatient * If no improvement will consider consult to GI
[2019-05-20] MEDS: Gabapentin 300 MG CAP PO SCH (21:27)
[2019-05-21] MEDS ORDERED: Cepastat Lozenges 1 LOZ PO PRN (08:15)
[2019-05-21] MEDS ORDERED: Sodium Chloride 0.65% Nasal 44 ML BOT EA NARE PRN (08:15)
[2019-05-21] MEDS ORDERED: Loratadine 10 MG TAB PO PRN (08:15)
[2019-05-21] MEDS ORDERED: Artificial Tears 18 DROP/0.9 ML EA EYE PRN (08:15)
[2019-05-21] MEDS ORDERED: Ondansetron ODT 4 MG TAB SL PRN (08:15)
[2019-05-21] MEDS ORDERED: hydrALAZINE 20 MG/ML VIAL SLOW IVP PRN (08:15)
[2019-05-21] MEDS ORDERED: Senokot S 8.6-50 MG TAB PO PRN (08:15)
[2019-05-21] MEDS ORDERED: Diabetic Tussin 200 MG/10 ML UDCUP PO PRN (08:15)
[2019-05-21] MEDS ORDERED: Loperamide HCl 2 MG CAP PO PRN (08:15)
[2019-05-21] MEDS ORDERED: Zolpidem Tartrate 5 MG TAB PO PRN (08:15)
[2019-05-21] MEDS: metroNIDAZOLE 500 MG in Premix Bag 1 BAG IVPB SCH ×2 (08:56→16:06)
[2019-05-21] MEDS: Fish Oil 1,000 MG CAP PO SCH (08:58)
[2019-05-21] MEDS: Ferrous Sulfate 325 MG TAB PO SCH (08:58)
[2019-05-21] MEDS: Aspirin 81 mg Enteric Coated Tablet PO SCH (08:58)
[2019-05-21] MEDS: Enoxaparin Sodium 40 MG/0.4 ML SYRINGE SC SCH (08:59)
[2019-05-21] MEDS: Venlafaxine HCl XR 150 MG CAP PO SCH (08:59)
[2019-05-21] MEDS: Dicyclomine 10 MG/5 ML UDCUP PO SCH ×4 (08:59→21:04)
[2019-05-21] MEDS: Magnesium Oxide 400 MG TAB PO SCH (08:59)
[2019-05-21] MEDS: Loratadine/Pseudoephedrine 10/240 mg Tablet PO SCH (08:59)
[2019-05-21] MEDS: Sodium Chloride 0.9% 1,000 ML IV SCH ×2 (09:20→21:13)
--- NOTE | 2019-05-21 10:53 | PDOC.PN ---
- Subjective Encounter Start Date: 05/21/19 Encounter Start Time: 08:40 -: old records requested/rev pt has less diarrhoea, no nausea or vomiting, no fever Patient seen and examined. No new complaints. No overnight events - Objective MAR Reviewed: Yes Vital Signs & Weight: Vital Signs (12 hours) Temp Pulse Resp BP BP Pulse Ox 05/21/19 07:55 98.0 F 69 18 134/72 96 05/21/19 04:00 98.4 F 63 20 135/86 94 L 05/21/19 01:17 98.3 F 69 20 130/83 96 Weight Admit Weight 165 lb 9.6 oz Weight 166 lb 8 oz I&O: 05/20/19 05/21/19 05/22/19 06:59 06:59 06:59 Intake Total 3551 3460 Output Total 1200 Balance 2351 3460 Result Diagrams: 05/20/19 08:01 05/20/19 08:01 Phys Exam - Physical Examination Constitutional: NAD HEENT: PERRLA, moist MMs, sclera anicteric Neck: no JVD, supple Respiratory: no wheezing, no rales, no rhonchi Cardiovascular: RRR, no significant murmur, no rub Gastrointestinal: soft, non-tender, no distention, positive bowel sounds Musculoskeletal: no edema, pulses present Neurological: non-focal, normal sensation, moves all 4 limbs Lymphatic: no nodes Psychiatric: normal affect, A&O x 3 Skin: no rash, normal turgor Dx/Plan (1) Colitis Code(s): K52.9 - NONINFECTIVE GASTROENTERITIS AND COLITIS, UNSPECIFIED Status : Acute Comment: presumed infectious (2) Diarrhea Code(s): R19.7 - DIARRHEA, UNSPECIFIED Status: Acute Qualifiers: Diarrhea type: presumed infectious Qualified Code(s): R19.7 - Diarrhea, unspecified Comment: due to colitis (3) Lactic acidosis Code(s): E87.2 - ACIDOSIS Status: Acute (4) Anxiety and depression Code(s): F41.9 - ANXIETY DISORDER, UNSPECIFIED; F32.9 - MAJOR DEPRESSIVE DISORDER, SINGLE EPISODE, UNSPECIFIED Status: Chronic (5) Chronic lung disease Code(s): J98.4 - OTHER DISORDERS OF LUNG Status: Chronic (6) GERD (gastroesophageal reflux disease) Code(s): K21.9 - GASTRO-ESOPHAGEAL REFLUX DISEASE WITHOUT ESOPHAGITIS Status: Chronic (7) Hiatal hernia Code(s): K44.9 - DIAPHRAGMATIC HERNIA WITHOUT OBSTRUCTION OR GANGRENE Status: Chronic (8) Thoracic compression fracture Code(s): S22.000A - WEDGE COMPRESSION FRACTURE OF UNSP THORACIC VERTEBRA, INIT Status: Chronic - Plan cont current plan of care, plan discussed w/ family, continue antibiotics * discussed with son about plan of care * advance diet as tolerated * medication reviewed as below * symptomatic treatment * continue cipro and flagyl. Review of Systems - Review of Systems Eyes: negative: Pain, Vision Change, Conjunctivae Inflammation, Eyelid Inflammation, Redness, Other ENT: negative: Ear Pain, Ear Discharge, Nose Pain, Nose Discharge, Nose Congestion, Mouth Pain, Mouth Swelling, Throat Pain, Throat Swelling, Other Respiratory: negative: Cough, Dry, Shortness of Breath, Hemoptysis, SOB with Excertion, Pleuritic Pain, Sputum, Wheezing Cardiovascular: negative: chest pain, palpitations, orthopnea, paroxysmal nocturnal dyspnea, edema, light headedness, other Gastrointestinal: Diarrhea. negative: Nausea, Vomiting, Abdominal Pain, Constipation, Melena, Hematochezia, Other Genitourinary: negative: Dysuria, Frequency, Incontinence, Hematuria, Retention , Other Musculoskeletal: negative: Neck Pain, Shoulder Pain, Arm Pain, Back Pain, Hand Pain, Leg Pain, Foot Pain, Other Skin: negative: Rash, Lesions, Loco, Bruising, Other - Medications/Allergies Allergies/Adverse Reactions: Allergies Allergy/AdvReac Type Severity Reaction Status Date / Time No Known Allergies Allergy Verified 05/18/19 20:59 Medications: Current Medications Acetaminophen (Tylenol) 650 mg PO Q4H PRN PRN Reason: Headache/Fever/Mild Pain (1-3) Last Admin: 05/19/19 10:46 Dose: 650 mg Artificial Tears (Tears Naturale) 2 drop EA EYE PRN PRN PRN Reason: Dry Eyes Aspirin (Ecotrin) 81 mg PO DAILY [facility] Last Admin: 05/21/19 08:58 Dose: 81 mg Cholecalciferol (Vitamin D3) 1,000 units PO DAILY [facility] Last Admin: 05/21/19 08:59 Dose: 1,000 units Dicyclomine HCl (Bentyl) 10 mg PO QID [facility] Last Admin: 05/21/19 08:59 Dose: 10 mg Enoxaparin Sodium (Lovenox) 40 mg SC 0900 [facility] Last Admin: 05/21/19 08:59 Dose: 40 mg Ferrous Sulfate (Feosol) 325 mg PO QAM-WM [facility] Last Admin: 05/21/19 08:58 Dose: 325 mg Fish Oil (Fish Oil) 1,000 mg PO DAILY [facility] Last Admin: 05/21/19 08:58 Dose: 1,000 mg Gabapentin (Neurontin) 300 mg PO HS [facility] Last Admin: 05/20/19 21:27 Dose: 300 mg Guaifenesin (Robitussin Sf) 200 mg PO Q4H PRN PRN Reason: Cough Hydralazine HCl (Apresoline) 10 mg SLOW IVP Q4H PRN PRN Reason: SBP > 180 and HR < 70 Sodium Chloride (Normal Saline 0.9%) 1,000 mls @ 100 mls/hr IV .Q10H [facility] Last Admin: 05/21/19 09:20 Dose: Not Given Ciprofloxacin/Dextrose 400 mg/ (Device) 200 mls @ 200 mls/hr IVPB Q12HR [facility] Last Admin: 05/21/19 09:00 Dose: 200 mls Metronidazole 500 mg/ Device 100 mls @ 100 mls/hr IVPB [id number],1600,[id number] [facility] Last Admin: 05/21/19 08:56 Dose: 100 mls Loperamide HCl (Imodium) 2 mg PO PRN PRN PRN Reason: Diarrhea/Loose Stools Loratadine (Claritin) 10 mg PO DAILYPRN PRN PRN Reason: Sinus Symptoms Loratadine/Pseudoephedrine Sulfate (Claritin-D 24 Hour) 1 tab PO DAILY [facility] Last Admin: 05/21/19 08:59 Dose: 1 tab Magnesium Oxide (Magnesium Oxide) 400 mg PO DAILY [facility] Last Admin: 05/21/19 08:59 Dose: 400 mg Ondansetron HCl (Zofran) 4 mg IVP Q6H PRN PRN Reason: Nausea/Vomiting Last Admin: 05/20/19 06:42 Dose: 4 mg Ondansetron HCl (Zofran Odt) 4 mg SL Q6H PRN PRN Reason: Nausea/Vomiting Quetiapine Fumarate (Seroquel) 100 mg PO HS [facility] Last Admin: 05/20/19 21:27 Dose: 100 mg Senna/Docusate Sodium (Senokot S) 2 tab PO BID PRN PRN Reason: Constipation Sodium Chloride ([place] Nasal [place] 0.65%) 0 ml EA NARE QIDPRN PRN PRN Reason: Nasal Congestion Throat Lozenges (Cepastat Lozenges) 1 lia PO Q2H PRN PRN Reason: Sore Throat Venlafaxine HCl (Effexor Xr) 150 mg PO DAILY [facility] Last Admin: 05/21/19 08:59 Dose: 150 mg Zolpidem Tartrate (Ambien) 5 mg PO HSPRN PRN PRN Reason: Insomnia
[2019-05-21] MEDS: Gabapentin 300 MG CAP PO SCH (21:05)
[2019-05-22] MEDS: metroNIDAZOLE 500 MG in Premix Bag 1 BAG IVPB SCH ×2 (00:47→08:52)
[2019-05-22] MEDS: Sodium Chloride 0.9% 1,000 ML IV SCH (04:44)
[2019-05-22 08:06] VITALS: BP 143/84; TEMP 98.2
[2019-05-22] MEDS: Aspirin 81 mg Enteric Coated Tablet PO SCH (08:51)
[2019-05-22] MEDS: Fish Oil 1,000 MG CAP PO SCH (08:51)
[2019-05-22] MEDS: Ferrous Sulfate 325 MG TAB PO SCH (08:51)
[2019-05-22] MEDS: Venlafaxine HCl XR 150 MG CAP PO SCH (08:51)
[2019-05-22] MEDS: Magnesium Oxide 400 MG TAB PO SCH (08:51)
[2019-05-22] MEDS: Enoxaparin Sodium 40 MG/0.4 ML SYRINGE SC SCH (08:52)
[2019-05-22] MEDS: Dicyclomine 10 MG/5 ML UDCUP PO SCH ×2 (09:01→12:49)
[2019-05-22] MEDS: Loratadine/Pseudoephedrine 10/240 mg Tablet PO SCH (09:02)
[2019-05-22 14:15] VITALS: BMI 28.8
--- NOTE | 2019-05-22 14:18 | DIS ---
DATE OF ADMISSION: 05/20/2019 DATE OF DISCHARGE: 05/22/2019 PRIMARY CARE PHYSICIAN: Shaka Murrell MD DISCHARGE DISPOSITION: Home. PRIMARY DISCHARGE DIAGNOSES: 1. Gastroenteritis with findings suggestive of colitis. 2. Lactic acidosis, resolved. SECONDARY DISCHARGE DIAGNOSES: 1. Chronic thoracic compression fracture. 2. Hiatal hernia. 3. Gastroesophageal reflux disease. 4. Chronic lung disease. 5. Anxiety and depression. PRIMARY PROCEDURE/OPERATION: None. RADIOLOGICAL INVESTIGATION: CT abdomen and pelvis showed mild hyperenhancement of the mucosa of the transverse colon can be seen with colitis. LABORATORY DATA: CBC; WBC 7.4, hemoglobin 13.0, platelet 207. BMP; sodium 138, potassium 3.5, BUN 7, creatinine 0.67, calcium 8.7. Lactic acid 2.0. LFT normal. Cardiac enzyme negative. CK 47. Lipase 21. Stool for C. diff negative. DISCHARGE MEDICATION: 1. Cipro 500 mg p.o. b.i.d. for 5 more days. 2. Flagyl 250 mg t.i.d. for 5 days. 3. Probiotics one capsule p.o. daily. 4. Aspirin 81 mg daily. 5. Tums 600 mg daily. 6. Ferrous sulfate 325 mg p.o. daily. 7. Tamra D one tablet p.o. daily p.r.n. 8. Fish oil 1000 mg p.o. daily. 9. Gabapentin 300 mg p.o. at bedtime. 10. Magnesium oxide 400 mg p.o. daily. 11. Reglan 5 mg q.8 hourly p.r.n. 12. Multivitamin one tablet p.o. daily. 13. Zofran 8 mg q.6 hourly p.r.n. 14. Ditropan 5 mg p.o. daily. 15. Seroquel 100 mg p.o. at bedtime. 16. Tramadol 50 mg one or two tablets q.6 hourly p.r.n. 17. Venlafaxine ER 150 mg daily. 18. Vitamin D3 1000 units p.o. daily. 19. DuoNeb q.6 hourly p.r.n. 20. Protonix 40 mg p.o. daily. CONTRAINDICATION: None. CODE STATUS: Full code. INPATIENT BOOM TRUCK DRIVER: None. ALLERGIES: NO KNOWN DRUG ALLERGIES. DISCHARGE PLAN: Posthospital, the patient is instructed to follow up with primary care physician in 1 week. The patient is also advised to make appointment with splash line operator, if diarrhea persist. HOSPITAL COURSE: A 74-year-old female with above-mentioned medical problem, who was admitted by Bibi Ann. Please see her H and P for further details. This patient was initially admitted as observation status. She was having nausea, vomiting, diarrhea. She had a total two or three emergency room visits for this problem. She had CT abdomen and pelvis, which showed finding suggestive of colitis of the transverse colon. She was admitted to the hospital at this time and she was treated with IV fluid and IV antibiotic therapy. Her C. diff was negative. The patient was continuously treated with IV Flagyl and Cipro while in hospital. Her diarrhea frequency is reducing. She is overall doing very well. The patient's vitals are stable. She is tolerating p.o. well. She does not have any nausea or vomiting. Her symptoms have been completely improved. I have seen and examined the patient bedside today. All review of systems reviewed with her and negative. Plan of care discussed with the patient's son on phone as well. PHYSICAL EXAMINATION: VITAL SIGNS: The patient's vitals are stable. Currently, temperature 98.2, pulse 70, respiratory rate 18, saturation 93% on room air, blood pressure 143/84. Weight 168 pounds. GENERAL: The patient is currently alert and awake. No obvious acute distress. HEENT: Normocephalic, atraumatic. LUNGS: Clear to auscultation without any rhonchi or rales. CARDIAC: S1, S2. Regular without any significant murmur. ABDOMEN: Soft and benign without any peritoneal sign, guarding, rigidity. EXTREMITIES: No edema. NEUROLOGIC: Nonfocal examination. Overall, the patient is medically stable for discharge today. Job ID: [id number]
--- NOTE | 2019-05-23 12:34 | EKG ---
Test Reason : HYPOKALEMIA Blood Pressure : / mmHG Vent. Rate : 066 BPM Atrial Rate : 066 BPM P-R Int : 176 ms QRS Dur : 070 ms QT Int : 452 ms P-R-T Axes : 016 -10 035 degrees QTc Int : 473 ms Normal sinus rhythm Voltage criteria for left ventricular hypertrophy Confirmed by JENNIE WEST ([id number]), editor magazine RUFUS ARGUETA ([id number]) on 05/23/2019 12:34:04 PM Referred By: Confirmed By:JENNIE WEST
== END 2019-05-22 15:01 | disposition home or self-care (01) | DRG 392 ==
LOC: ERS 16:03 → 2SW 20:34 → OBSVTOIN 05-20 07:55 → T4-A 05-20 11:48
PROVIDERS: ADMIT Hospitalist; ATTEND Hospitalist
DX: A09 Infectious gastroenteritis and colitis, unspecified (principal); E87.2 Acidosis; M48.54XA Collapsed vertebra, not elsewhere classified, thoracic region, initial encounter for fracture; K44.9 Diaphragmatic hernia without obstruction or gangrene; J98.9 Respiratory disorder, unspecified; F41.9 Anxiety disorder, unspecified; E66.9 Obesity, unspecified; F32.9 Major depressive disorder, single episode, unspecified; E87.6 Hypokalemia; K76.89 Other specified diseases of liver; K21.9 Gastro-esophageal reflux disease without esophagitis; Z79.2 Long term (current) use of antibiotics; Z79.82 Long term (current) use of aspirin; Z79.899 Other long term (current) drug therapy; Z90.49 Acquired absence of other specified parts of digestive tract; Z98.51 Tubal ligation status; Z68.28 Body mass index [BMI] 28.0-28.9, adult
CPT/HCPCS: 36415; 74177; 80048; 80053; 82550; 83605; 83690; 84484; 85025; 87324; 87449; 93005; 96361; 96372; 96374; 96375; C9113; J0500; J0744; J1650; J2405; Q9966